=== PATIENT | male | born 1965 | race African-American/Black ===

== ENCOUNTER 2020-12-03 10:05 | Inpatient (IN) | payer SELFPAY ==
[2020-12-03 14:29] LABS: Troponin I 0.014 ng/mL (< 0.028)
[2020-12-03 14:30] LABS: ALT (SGPT) 9 U/L (8-55); AST (SGOT) 15 U/L (5-34); Albumin 4.3 g/dL (3.5-5.0); Alkaline Phosphatase 90 U/L (40-110); Anion Gap 14 mmol/L (10-20); BUN (Urea Nitrogen) 9 mg/dL (8.4-25.7); Bilirubin, Total 0.4 mg/dL (0.2-1.2); Calc. Creatinine Clearance 0 mL/min (70-130); Calcium 10.2 mg/dL (7.8-10.44); Carbon Dioxide 27 mmol/L (22-29); Chloride 98 mmol/L (98-107); Globulin 3.6 g/dL (2.4-3.5); Glucose 283 mg/dL (70-105); Potassium 4.1 mmol/L (3.5-5.1); Protein, Total 7.9 g/dL (6.0-8.3); Sodium 135 mmol/L (136-145)
[2020-12-03 15:05] LABS: #Basophils 0.1 thou/uL (0.0-0.2); #Eosinphils 0.1 thou/uL (0.0-0.7); #Lymphocytes 1.1 thou/uL (1.20-3.40); #Monocytes 0.3 thou/uL (0.11-0.59); #Neutrophils 6.9 thou/uL (1.40-6.50); %Eosinophils 0.9 % (0.0-10.0); %Lymphocytes 13.4 % (21.0-51.0); %Monocytes 3.7 % (0.0-10.0); Hemoglobin 13.7 g/dL (14.0-18.0); Mean Corpuscular HGB CONC 34.2 g/dL (32.0-36.0); Mean Corpuscular Hemoglobin 29.6 pg (27.0-31.0); Mean Corpuscular Volume 86.6 fL (78.0-98.0); Mean Platelet Volume 7.4 fL (7.4-10.4); Platelet Count 281 thou/uL (130-400); RBC Distribution Width 11.8 % (11.5-14.5); Red Blood Cell (RBC) Count 4.64 mill/uL (4.70-6.10); White Blood Cell (WBC) Count 8.5 thou/uL (4.8-10.8)
[2020-12-03] MEDS ORDERED: Acetaminophen 650 MG Suppository PR PRN (16:57)
[2020-12-03] MEDS ORDERED: Acetaminophen 325 MG TAB PO PRN (16:57)
[2020-12-03] MEDS ORDERED: hydrALAZINE 20 MG/ML VIAL SLOW IVP PRN (16:58)
[2020-12-03] MEDS ORDERED: Dextrose 5% in Water 1,000 ML IV PRN (16:59)
[2020-12-03] MEDS ORDERED: Dextrose 50% Abboject 50 ML SYRINGE SLOW IVP PRN (16:59)
[2020-12-03] MEDS ORDERED: HumaLOG 300 UNITS/3 ML VIAL SC PRN (16:59)
[2020-12-03] MEDS ORDERED: Amlodipine 5 MG TAB PO SCH (17:00)
[2020-12-03] MEDS ORDERED: cloNIDine 0.1 MG TAB ONE (17:05)
[2020-12-03 20:15] VITALS: BMI 27.2
[2020-12-03 20:26] LABS: Bacteria/HPF None Seen HPF (None Seen); Bilirubin Negative (Negative); Blood, Urine Negative (Negative); Clarity Clear (Clear); Glucose, Urine (Dipstick) Greater than 1000 mg/dL (Negative); Ketone, Urine Negative (Negative); Leukocyte Negative Leu/uL (Negative); Nitrite Negative (Negative); Protein, Urine (Dipstick) Negative (Neg-Trace); RBC/HPF 0-3 HPF (0-3); Specific Gravity, Urine 1.009 (1.002-1.036); Squamous Epithelial 0-3 HPF (0-3); Urobilinogen Normal mg/dL (Less than 2); WBC/HPF 0-3 HPF (0-3)
[2020-12-03] MEDS ORDERED: Labetalol 100 MG TAB PO SCH (22:00)
[2020-12-04] MEDS: NIFEdipine XL 60 MG TAB PO SCH ×3 (00:03→21:43)
[2020-12-04 05:25] LABS: #Basophils 0.1 thou/uL (0.0-0.2); #Eosinphils 0.1 thou/uL (0.0-0.7); #Lymphocytes 1.5 thou/uL (1.20-3.40); #Monocytes 0.3 thou/uL (0.11-0.59); %Basophils 1.2 % (0.0-1.0); %Eosinophils 2.3 % (0.0-10.0); %Lymphocytes 30.3 % (21.0-51.0); %Monocytes 6.4 % (0.0-10.0); %Neutrophils 59.8 % (42.0-75.0); Hemoglobin 11.5 g/dL (14.0-18.0); Mean Corpuscular HGB CONC 34.1 g/dL (32.0-36.0); Mean Corpuscular Hemoglobin 29.6 pg (27.0-31.0); Mean Platelet Volume 7.1 fL (7.4-10.4); Platelet Count 212 thou/uL (130-400); RBC Distribution Width 11.8 % (11.5-14.5); Red Blood Cell (RBC) Count 3.88 mill/uL (4.70-6.10)
[2020-12-04 05:44] LABS: Anion Gap 10 mmol/L (10-20); BUN (Urea Nitrogen) 5 mg/dL (8.4-25.7); Calc. Creatinine Clearance 116 mL/min (70-130); Calcium 9.2 mg/dL (7.8-10.44); Carbon Dioxide 27 mmol/L (22-29); Chloride 104 mmol/L (98-107); Glucose 186 mg/dL (70-105); Potassium 3.6 mmol/L (3.5-5.1); Sodium 137 mmol/L (136-145)
[2020-12-04 07:06] LABS: Hemoglobin A1c 10.8 % (4.0-6.0)
[2020-12-04 07:38] LABS: SARS-CoV-2 PCR by NAA Not Detected (NotDetected)
[2020-12-04] MEDS: Losartan 25 MG TAB PO SCH (08:21)
[2020-12-04] MEDS ORDERED: Amlodipine 5 MG TAB PO SCH (09:00)
[2020-12-04] MEDS ORDERED: Labetalol 100 MG TAB PO SCH ×2 (09:00→14:15)
[2020-12-04] MEDS: HumaLOG 300 UNITS/3 ML VIAL SC PRN ×2 (11:32→16:27)
[2020-12-04] MEDS: metFORMIN 500 MG TAB PO SCH (16:28)
[2020-12-04] MEDS: Labetalol 100 MG TAB PO SCH (21:43)
[2020-12-05 05:40] LABS: Albumin 3.6 g/dL (3.5-5.0); Anion Gap 13 mmol/L (10-20); BUN (Urea Nitrogen) 6 mg/dL (8.4-25.7); Calc. Creatinine Clearance 111 mL/min (70-130); Calcium 9.3 mg/dL (7.8-10.44); Carbon Dioxide 26 mmol/L (22-29); Chloride 103 mmol/L (98-107); Glucose 224 mg/dL (70-105); Magnesium 1.9 mg/dL (1.6-2.6); Phosphorus 3.7 mg/dL (2.3-4.7); Potassium 3.5 mmol/L (3.5-5.1); Sodium 138 mmol/L (136-145)
[2020-12-05] MEDS: HumaLOG 300 UNITS/3 ML VIAL SC PRN (06:31)
[2020-12-05] MEDS ORDERED: Spironolactone 25 MG TAB PO SCH (08:00)
[2020-12-05] MEDS ORDERED: Glimepiride 1 MG TAB PO SCH (08:00)
[2020-12-05 08:18] VITALS: BP 172/86; TEMP 98.1
[2020-12-05] MEDS: NIFEdipine XL 60 MG TAB PO SCH (09:17)
[2020-12-05] MEDS: Losartan 25 MG TAB PO SCH (09:18)
[2020-12-05] MEDS: Labetalol 100 MG TAB PO SCH (09:18)
[2020-12-05] MEDS: metFORMIN 500 MG TAB PO SCH (09:19)
[2020-12-12 15:13] LABS: Renin Activity 1.849 ng/mL/hr (0.167-5.380)
[2020-12-14 15:14] LABS: Metanephrine,Plasma 12.7 pg/mL (0.0-88.0); Normetanephrine,Pl 116.3 pg/mL (0.0-136.8)
[2020-12-16 17:13] LABS: Metanephrine,Ur 41 ug/L (Undefined); Metanephrines Total-24H 164 ug/24 hr (58-276); Normetanephrine,Ur 174 ug/L (Undefined); Normetanephrines-24H U 696 ug/24 hr (156-729)
== END 2020-12-05 09:40 | disposition home or self-care (01) | DRG 305 ==
LOC: ERS 10:05 → 2SW 16:44 → OBSVTOIN 12-04 17:27
PROVIDERS: ADMIT Internal Medicine; ATTEND Internal Medicine
DX: I16.0 Hypertensive urgency (principal); I10 Essential (primary) hypertension; Z20.822 Contact with and (suspected) exposure to COVID-19; E78.5 Hyperlipidemia, unspecified; R00.0 Tachycardia, unspecified; N28.1 Cyst of kidney, acquired; E11.65 Type 2 diabetes mellitus with hyperglycemia; Z79.84 Long term (current) use of oral hypoglycemic drugs; Z79.899 Other long term (current) drug therapy
CPT/HCPCS: 36415; 36416; 71045; 76770; 80048; 80053; 80069; 81001; 82088; 83036; 83735; 83835; 84244; 84443; 84484; 85025; 87635; 96374; G0378; J0360; J1815; U0003; U0005